=== PATIENT | female | born 1940 | race Two or more races ===

== ENCOUNTER → 2020-05-27 | Emergency (ER) | payer OTHER ==
[~2020-05-27] VITALS: Ht 165.1 cm; Wt 69.9 kg
[~2020-05-27] MED LIST: GAS RELIEF180 MG PO; KETO10TA2 PO; LEVO-T125 MCG PO; LOSARTAN POTASS50 MG PO; NORFLEX100MG PO; PANTOPRAZOLE SO40 MG PO; VITAMIN C500 MG PO; VITAMIN D3250 MC1 PO
== END | disposition home or self-care (01) ==
LOC: ER 13:26
DX: S30.0XXA Contusion of lower back and pelvis, initial encounter (principal); W18.39XA Other fall on same level, initial encounter; Y93.89 Activity, other specified; Y92.832 Beach as the place of occurrence of the external cause; Y99.8 Other external cause status